=== PATIENT | female | born 1990 | race Caucasian/White ===

== ENCOUNTER 2020-03-27 21:58 | Emergency (ER) | payer OTHER ==
[2020-03-27 22:03] VITALS: Wt 81.8 kg
[2020-03-27] MEDS ORDERED: MEDROL DOSE PACK4 MG PO (23:18)
[2020-03-27 23:25] VITALS: BP 140/88
== END 2020-03-27 23:25 | disposition home or self-care (01) ==
LOC: D.ER 21:58
DX: L50.9 Urticaria, unspecified (principal)